=== PATIENT | male | born 1955 | race Caucasian/White ===

== ENCOUNTER 2021-03-20 18:34 | Emergency (ER) | payer BC, OTHER ==
[2021-03-20] MEDS ORDERED: Ibuprofen 200 MG TAB ONE (19:35)
[2021-03-20] MEDS ORDERED: HYDROcodone/Acetaminophen 5/325 mg Tablet ONE (19:35)
[2021-03-20] MEDS ORDERED: Morphine 4 MG/ML VIAL ONE (21:11)
== END 2021-03-20 21:30 | disposition home or self-care (01) ==
LOC: CSHERS 18:34
DX: R07.89 Other chest pain (principal)
CPT/HCPCS: 71045; 96372; J2270